=== PATIENT | male | born 1990 | race African-American/Black ===

== ENCOUNTER 2023-02-02 19:26 | Emergency (ER) | payer BC ==
[~2023-02-02] VITALS: Ht 180.3 cm; Wt 80.5 kg
[2023-02-02 20:01] VITALS: O2SAT 99
[2023-02-02] MEDS ORDERED: MORPHINE SULFATE 10 MG/ML CPJ IM ONE (20:30)
[2023-02-02] MEDS ORDERED: MORPHINE SULFATE 10 MG/ML CPJ IM NR (21:00)
[2023-02-02] MEDS ORDERED: IBUP-2029 MT (21:22)
[2023-02-02 22:04] VITALS: BP 122/72; PULSE 72; RESP 18; TEMP 98.3
== END 2023-02-02 22:05 | disposition home or self-care (01) ==
LOC: ER 19:42
DX: M25.511 Pain in right shoulder (principal)
CPT/HCPCS: 23650; 73030; 96372; 99152; 99285; J2270; Z7610; A4565